=== PATIENT | male | born 1955 | race African-American/Black ===

== ENCOUNTER 2021-03-29 19:32 | Inpatient (IN) | payer OTHER, MEDICAID ==
[~2021-03-29] VITALS: Ht 185.4 cm; Wt 103.0 kg
[2021-03-29 23:06] LABS: HEMATOCRIT. 41.6 % (42.0-52.0); HEMOGLOBIN. 13.9 g/dL (14.0-18.0); MEAN CORPUSCULAR HEMOGLOBIN 27.4 pg (28.0-32.0); MEAN CORPUSCULAR VOLUME 81.9 fL (80.0-94.0); MEAN PLATELET VOLUME 7.7 fl (7.4-10.4); PLATELET 205 x1000/uL (130-400); RED BLOOD CELL COUNT 5.08 mill/uL (4.7-6.1); RED CELL DISTRIBUTION WIDTH 15.2 % (11.6-14.6)
[2021-03-29 23:09] LABS: CHLORIDE 108 mEq/L (98-107)
[2021-03-29 23:13] LABS: INR 1.1; PROTHROMBIN TIME 11.3 sec (9.6-11.0)
[2021-03-29 23:29] LABS: PLATELET ESTIMATE NORMAL
[2021-03-29] MEDS ORDERED: POTASSIUM CHLORIDE 20MEQ TABLET SR PO ONE (23:45)
[2021-03-30] MEDS ORDERED: CHLO25TA27 MT (08:36)
[2021-03-30] MEDS ORDERED: DIVA500T51 MT (08:36)
[2021-03-30] MEDS ORDERED: METF-414 MT (08:36)
[2021-03-30] MEDS ORDERED: CLON1TAB PO (08:36)
[2021-03-30] MEDS ORDERED: AMLO5TAB88 MT (08:36)
[2021-03-30] MEDS ORDERED: ATOR20TA65 MT (08:36)
[2021-03-30] MEDS ORDERED: CLONIDINE 0.1MG TABLET PO PRN (09:00)
[2021-03-30] MEDS ORDERED: ONDANSETRON HCL 4MG/2ML INJ IV PRN (09:00)
[2021-03-30] MEDS ORDERED: ACETAMINOPHEN 325MG TABLET PO PRN (09:00)
[2021-03-30] MEDS ORDERED: DIPHENHYDRAMINE 50MG/ML VIAL IV PRN (09:00)
[2021-03-30 09:17] VITALS: BP 135/99
[2021-03-30 09:28] VITALS: BP 135/99
[2021-03-30] MEDS: SODIUM CHLORIDE 0.9% 1,000 ML IV SCH ×2 (10:00→18:24)
[2021-03-30] MEDS: ENOXAPARIN 40MG/0.4ML SYR SUBCUT SCH (10:00)
[2021-03-30] MEDS ORDERED: *PATIENT'S OWN MEDICATION STORAGE XX SCH (10:00)
[2021-03-30 12:14] VITALS: BP 125/90
[2021-03-30 15:43] VITALS: BP 129/83
[2021-03-30 20:00] VITALS: BP 146/80
[2021-03-31] VITALS: BP 133/92
[2021-03-31 04:00] VITALS: BP 138/89
[2021-03-31] MEDS: SODIUM CHLORIDE 0.9% 1,000 ML IV SCH (04:24)
[2021-03-31 05:52] LABS: CHLORIDE 108 mEq/L (98-107)
[2021-03-31 06:01] LABS: LDL CHOLESTEROL 97 mg/dL (5-100)
[2021-03-31 06:02] LABS: HDL CHOLESTEROL 31 mg/dL (40-59)
[2021-03-31 06:24] LABS: HEMATOCRIT. 45.5 % (42.0-52.0); HEMOGLOBIN. 15.1 g/dL (14.0-18.0); MEAN CORPUSCULAR HEMOGLOBIN 27.4 pg (28.0-32.0); MEAN CORPUSCULAR VOLUME 82.8 fL (80.0-94.0); MEAN PLATELET VOLUME 8.3 fl (7.4-10.4); PLATELET 222 x1000/uL (130-400); RED CELL DISTRIBUTION WIDTH 15.6 % (11.6-14.6)
[2021-03-31 08:02] VITALS: BP 134/84
[2021-03-31] MEDS: ENOXAPARIN 40MG/0.4ML SYR SUBCUT SCH (08:59)
[2021-03-31 12:17] LABS: PLATELET ESTIMATE NORMAL
[2021-03-31 12:30] VITALS: BP 122/88
[2021-03-31 16:04] VITALS: BP 134/84
== END 2021-03-31 19:40 | disposition home or self-care (01) | DRG 74 ==
LOC: ER 19:32 → 6WST 23:53 → ENRESERV 03-30 04:07
PROVIDERS: ADMIT Internal Medicine; ATTEND Internal Medicine
DX: G90.8 Other disorders of autonomic nervous system (principal); E86.0 Dehydration; E87.6 Hypokalemia; E11.9 Type 2 diabetes mellitus without complications; I10 Essential (primary) hypertension; J44.9 Chronic obstructive pulmonary disease, unspecified; R56.9 Unspecified convulsions; R79.89 Other specified abnormal findings of blood chemistry; E87.8 Other disorders of electrolyte and fluid balance, not elsewhere classified
CPT/HCPCS: 36415; 80053; 80061; 82962; 83036; 83880; 84443; 84484; 85025; 93005; 93306; 93880; 93970; 99285; J1650; J7030

== ENCOUNTER 2025-03-14 20:03 | Emergency (ER) | payer MEDICARE, MEDICAID ==
[~2025-03-14] VITALS: Ht 185.4 cm; Wt 107.0 kg
[~2025-03-14 20:03] MED LIST: ALBU2.5V13 NEB; ALBU90AE; AMLO5TAB88 MT; ASPI-1406 PO; ATOR10TA69 PO; BROM1.7D12 EACHEYE; CHLO25TA27 MT; CLON1TAB2 PO; CLOT15CR5 TP; CLOT30SO TP; CYCL30DR; DIVA500T51 MT; DONE10TA43 PO; FLUT1BLS3 IH; HYDR30CR7; KETO15CR2 TP; LEVE100023 PO; METF-414 MT; MOXI3DRO12 EACHEYE; PRED5DRO25; PREG50CA64 PO; TAMSULOSIN
[2025-03-14 20:46] VITALS: O2SAT 96
[2025-03-14] MEDS: LIDOCAINE 5% PATCH TOP SCH (22:56)
[2025-03-14] MEDS: ACETAMINOPHEN 325MG TABLET PO ONE (22:57)
[2025-03-15] MEDS ORDERED: LIDO-53 TP (00:16)
[2025-03-15] MEDS ORDERED: NAPR-1176 MT (00:16)
[2025-03-15 00:33] VITALS: BP 107/75; PULSE 83; RESP 18; TEMP 36.8; O2SAT 98
== END 2025-03-15 00:35 | disposition home or self-care (01) ==
LOC: ER 20:03
DX: S09.8XXA Other specified injuries of head, initial encounter (principal); M79.602 Pain in left arm; E11.9 Type 2 diabetes mellitus without complications; E78.00 Pure hypercholesterolemia, unspecified; J44.9 Chronic obstructive pulmonary disease, unspecified; Z79.1 Long term (current) use of non-steroidal anti-inflammatories (NSAID); Z79.82 Long term (current) use of aspirin; Z79.84 Long term (current) use of oral hypoglycemic drugs; Z79.899 Other long term (current) drug therapy; W06.XXXA Fall from bed, initial encounter; Y93.89 Activity, other specified; Y92.89 Other specified places as the place of occurrence of the external cause; Y99.8 Other external cause status
CPT/HCPCS: 73030; 99284